=== PATIENT | male | born 1995 | race Caucasian/White ===

== ENCOUNTER 2017-08-02 21:34 | Emergency (ER) | payer SELFPAY ==
[~2017-08-02] VITALS: Ht 167.6 cm; Wt 104.3 kg
[2017-08-02 21:39] VITALS: BP 138/68
[2017-08-02] MEDS ORDERED: IBUPROFEN 600 MG TABLET PO ONE ×2 (23:00→23:07)
== END 2017-08-03 00:48 | disposition home or self-care (01) ==
LOC: ER 21:38
DX: S82.092A Other fracture of left patella, initial encounter for closed fracture (principal); X50.1XXA Overexertion from prolonged static or awkward postures, initial encounter; Y93.89 Activity, other specified; Y92.89 Other specified places as the place of occurrence of the external cause; Y99.8 Other external cause status
CPT/HCPCS: 29505; 73564; 99284; A4606; Z7610

== ENCOUNTER 2018-08-28 16:11 | Emergency (ER) | payer BC ==
[~2018-08-28] VITALS: Ht 177.8 cm; Wt 94.8 kg
[2018-08-28 16:11] VITALS: BP 131/83
--- NOTE | 2018-08-28 16:11 | NUR ---
PT [facility] FOR R FOOT PAIN AND SWELLING X 9 DAYS, CHILLS THE PAST 2 NIGHTS. [employer]. AAOX4, RESP EVEN AND UNLABORED, NO SOB, NAD, VSS, PENDING ER PROVIDER EVAL
[2018-08-28] MEDS ORDERED: KETOROLAC TROMETHAMINE INJ 30 MG/ML VIAL ONE (17:02)
[2018-08-28] MEDS: KETOROLAC TROMETHAMINE INJ 30 MG/ML VIAL IV ONE (17:04)
[2018-08-28 17:06] LABS: BASOPHILS % (AUTO) 0.5 % (0.0-2.0); HEMATOCRIT 42 % (39-51); HEMOGLOBIN 13.9 g/dL (13.5-17.5); LYMPHOCYTES # (AUTO) 1.7 /CMM (0.8-4.8); LYMPHOCYTES % (AUTO) 20.6 % (20.0-44.0); MEAN CORPUSCULAR HGB CONC 33 g/dl (31.0-36.0); MEAN CORPUSCULAR VOLUME 81 fL (80-96); MONOCYTES # (AUTO) 0.7 /CMM (0.1-1.30); MONOCYTES % (AUTO) 8.8 % (2.0-12.0); NEUTROPHILS # (AUTO) 5.5 /CMM (1.8-8.9); NEUTROPHILS % (AUTO) 68.1 % (43.0-81.0); PLATELET COUNT (AUTO) 277 /CMM (150-450); RED BLOOD CELL COUNT(AUTO) 5.25 MIL/uL (4.5-6.0)
[2018-08-28 17:16] LABS: CALCIUM, SERUM 9.7 mg/dL (8.5-10.1); POTASSIUM 4.1 mmol/L (3.5-5.1)
[2018-08-28 17:19] LABS: URIC ACID 7.5 mg/dL (2.6-7.2)
[2018-08-28 17:20] LABS: C-REACTIVE PROTEIN 11.5 mg/dL (0.0-0.9)
--- NOTE | 2018-08-28 18:41 | NUR ---
Patient discharged to home in stable condition. Written and verbal after care instructions given. Patient verbalizes understanding of instruction. IV removed. Catheter intact and site benign. Pressure and 4x4 applied to site. No bleeding noted.
== END 2018-08-28 18:42 | disposition home or self-care (01) ==
LOC: ER 16:13
DX: L03.115 Cellulitis of right lower limb (principal); R82.998 Other abnormal findings in urine
CPT/HCPCS: 36415; 73630-TC; 80048-TC; 84550-TC; 85025-TC; 85652-TC; 86140-TC; 93971-TC; A4606; J1885; Z7610